=== PATIENT | male | born 1945 | race Caucasian/White ===

== ENCOUNTER → 2020-06-08 01:18 | Outpatient (CLI) | payer MEDICARE, SELFPAY ==
[2020-06-08 20:54] LABS: SARS-CoV-2 RNA PCR Negative
== END ==
PROVIDERS: PCP Family Medicine; Visit Provider Urology
DX: Z01.812 Encounter for preprocedural laboratory examination (principal); Z20.822 Contact with and (suspected) exposure to COVID-19
CPT/HCPCS: C9803; U0003; U0005

== ENCOUNTER 2020-06-11 03:07 | Day surgery (SDC) | payer MEDICARE, SELFPAY ==
[2020-05-31 15:28] VITALS: BMI 28.7
--- NOTE | 2020-06-11 07:31 | ECG_ITS ---
Measurements Intervals [place] Rate: 64 P: 64 NV: 172 QRS: 56 QRSD: 91 T: 72 QT: 401 QTc: 415 Interpretive Statements SINUS RHYTHM MINIMAL Q WAVES- ANTEROLAT/INF LEADS BORDERLINE ECG Electronically Signed On 06-11-2020 8:21:11 CDT by Kiran Phillips D.O.
[2020-06-11 07:58] VITALS: BMI 27.6
[2020-06-11 07:59] VITALS: BP 126/75; PULSE 73; RESP 16; TEMP 36.9; O2SAT 98
[2020-06-11] MEDS: LACTATED RINGERS 1,000 ML 30 ML IV CONT (08:17)
--- NOTE | 2020-06-11 08:22 | WPDANESEPPF ---
Anes - Initial Pre Proc Eval Procedure: Operation Date: 06/11/20 09:30 Proposed Procedures p Insertion SpaceOAR Hydrogel System - Ever Gonzalez MD Date/Time: 06/11/20 08:22 Surgeon: Ever Gonzalez MD Pre Op Diagnosis: Prostate CA Patient Data Age: 74 Gender: M Height: 1.83 m Weight: 92.5 kg Last Vital Signs Temp 36.9 C 06/11/20 07:59 Pulse 73 06/11/20 07:59 Resp 16 06/11/20 07:59 BP 126/75 06/11/20 07:59 Pulse Ox 98 06/11/20 07:59 Allergies Allergy/AdvReac Type Severity Reaction Status Date / Time No Known Allergies Allergy Verified 06/11/20 07:43 Home Medications Medication Instructions Recorded Confirmed Type aspirin [Adult Aspirin EC Low 81 mg PO DAILY 05/31/20 06/11/20 History Strength] atorvastatin 40 mg PO DAILY 05/31/20 06/11/20 History carvedilol 3.125 mg PO BID 05/31/20 06/11/20 History escitalopram oxalate 20 mg PO HS 05/31/20 06/11/20 History lisinopril 5 mg PO DAILY 05/31/20 06/11/20 History tamsulosin 0.8 mg PO DAILY 05/31/20 06/11/20 History Patient hx anesthesia problems: none Family hx anesthesia problems: none PMFSH Past Medical History Medical History (Updated 06/11/20 @ 08:23 by Dameon Becerra MD) Anxiety CAD (coronary artery disease) HTN (hypertension) Hx of myocardial infarction 2014 Hypercholesterolemia Prostate CA Surgical History Surgical History (Updated 06/11/20 @ 08:23 by Dameon Becerra MD) S/P CABG (coronary artery bypass graft) 3v 2014 Social History Social History Smoking packs per day: 1 Smoking cigarettes per day: 20.0 Years smoked: 48 Smoking pack-years: 48.00 Smoking status: Former smoker Smoking end date: 08/15/14 Alcohol intake: never Substance use: never Living arrangements: with family Additional living arrangements comments: Spiritual care concerns: No Anes - Eval Final PreProcedure Day of Procedure 06/11/20 08:22 Patient weight: overweight Heart: regular rate and rhythm Lungs: clear to auscultation and normal air movement Airway: Mallampati scale class II Neurological: alert and oriented Last oral intake: >/= 8 hours ASA classification: III Emergent: no Anesthetic plan: proceed Anesthesia type and monitoring: general GIVS Informed Consent: The patient's anesthetic plan and its attendant risks and benefits were discussed with the patient/family/POA. Questions were solicited and answers provided to the satisfaction of the patient/family/POA.
--- NOTE | 2020-06-11 10:12 | WPDHPUPDATE1 ---
History and Physical Update Update Date/Time: 06/11/20 10:12 History and Physical has been reviewed, including an updated exam of the patient. There are NO changes in the patient's condition. Risks, benefits, and alternatives have been discussed and questions answered. Patient agrees to proceed with procedure. Proceed with space oar
[2020-06-11] MEDS: ceFAZolin 2 GM/D5W 50 ML 2 GM/50 ML BAG IVPB (10:32)
--- NOTE | 2020-06-11 11:00 | P.OP_ITS ---
Procedure Note - Detailed Date of procedure: 06/11/20 Pre-op diagnosis: Prostate CA Post-op diagnosis: same Procedure performed: Transrectal ultrasound with space oar insertion Description of procedure: Patient is taken to the operative suite and correctly identified. Once anesthesia was obtained he is placed in the dorsal lithotomy position and prepped and draped usual sterile fashion. Transrectal ultrasound probe was then inserted. Prostate was visualized in both sagittal and transverse planes. Spinal needle was inserted in the plane between the prostate and the rectum. This was verified in both sagittal and transverse views. A spiration reveals no blood. 1 cc of saline was injected and there was a good separation of the prostate from the rectal wall. At this point the prepared Space Oar was injected. Again there was very good separation as the prostate lifted off the rectum. This was confirmed again in both planes. Needle was removed. Patient tolerated procedure well without any complications and was taken recovery room stable condition. Anesthesia: GLMA Surgeon: Ever Gonzalez MD Drains: No Packing: No Pathology: none sent Complications: No immediate complications Condition: stable Disposition: PACU
[2020-06-11 11:01] VITALS: BP 78/64; PULSE 63; RESP 12; O2SAT 92
[2020-06-11 11:31] VITALS: BP 100/59; PULSE 70
[2020-06-11 12:01] VITALS: BP 112/96; PULSE 71
== END 2020-06-11 11:50 | disposition home or self-care (01) ==
PROVIDERS: PCP Family Medicine; Visit Provider Urology
PROC: (CPT 55874; principal; 2020-06-11 09:30)
DX: C61 Malignant neoplasm of prostate (principal); I10 Essential (primary) hypertension; I25.10 Atherosclerotic heart disease of native coronary artery without angina pectoris; Z95.1 Presence of aortocoronary bypass graft; I25.2 Old myocardial infarction; E78.00 Pure hypercholesterolemia, unspecified; F41.9 Anxiety disorder, unspecified; F32.9 Major depressive disorder, single episode, unspecified; E66.3 Overweight; Z68.27 Body mass index [BMI] 27.0-27.9, adult; Z87.891 Personal history of nicotine dependence
CPT/HCPCS: 55874; 93005; A9270; C1889; J0690; J2405; J2704; J3010; J7120

== ENCOUNTER 2020-06-18 09:38 | Outpatient (CLI) | payer MEDICARE, SELFPAY ==
--- NOTE | ~2020-06-18 | MR_ITS ---
EXAMINATION: MR pelvis wo/w con INDICATION: Prostate cancer TECHNIQUE: Coronal SSFSE ARC, Axial, Sagittal, and Coronal 2D FIESTA FatSat, Axial 3D T2 Cube, Axial SSFSE BH ARC, Axial 3D DualEcho BH, Axial SSFSE-IR Richard, Axial DWI b=600, pre and dynamic postcontrast Axial LAVA ARC, WATER:POST Cor LAVA-FLEX COMPARISON: None available CONTRAST: Multihance, 18 cc FINDINGS: There are no pathologically enlarged pelvic lymph nodes. Areas of nonenhancing T1 signal hy perintensity in the prostate consistent with biopsy. There is an area of hypointense T2 signal corres ponding restricted diffusion in the right aspect of the prostate which may reflect patient's known ma lignancy. Material situated between the rectum and prostate is likely related to prostate biopsy. The re are no dilated loops of bowel. A small left hydrocele is noted. There is moderate spondylosis of t he lower lumbar spine. A moderate volume of colonic stool is noted. IMPRESSION: 1. Changes of prostate biopsy. No metastatic disease. Reviewed, dictated and finalized at location A.
[2020-06-18 10:17] LABS: Estimated Glomerular Filt Rate 42
== END 2020-06-18 09:39 | disposition home or self-care (01) ==
LOC: ANHIMG 09:40
PROVIDERS: PCP Family Medicine; Visit Provider Radiology Radiation Oncology
DX: C61 Malignant neoplasm of prostate (principal); M47.816 Spondylosis without myelopathy or radiculopathy, lumbar region
CPT/HCPCS: 72197; A9577

== ENCOUNTER 2022-03-31 08:00 | Outpatient (NON) | payer MEDICARE, SELFPAY | END 2022-03-31 08:01 | disposition home or self-care (01) | LOC: ANHLAB 04-01 12:41 | PROVIDERS: PCP Family Medicine; Visit Provider Nurse Practitioner | DX: L85.8 Other specified epidermal thickening (principal) | CPT/HCPCS: 88305 ==